=== PATIENT | female | born 1960 | race Caucasian/White ===

== ENCOUNTER 2021-03-13 05:38 | Outpatient (CLI) | payer MEDICAID ==
[~2021-03-13] VITALS: Ht 162.6 cm; Wt 138.6 kg
[2021-03-17] MEDS ORDERED: MELO5CAP3 PO (11:24)
[2021-03-17] MEDS ORDERED: LEVO175C2 PO (11:24)
[2021-03-17] MEDS ORDERED: BUDE10.2 IH (11:24)
[2021-03-17] MEDS ORDERED: LISI20TA26 PO (11:24)
[2021-03-17] MEDS ORDERED: SIMV40TA25 PO (11:24)
[2021-03-17] MEDS ORDERED: LORA10TA7 PO (11:24)
[2021-03-17] MEDS ORDERED: METO100T12 PO (11:24)
[2021-03-17] MEDS ORDERED: ALBU0.63 IH (11:24)
[2021-03-17] MEDS ORDERED: OMEP20TA7 PO (11:24)
[2021-03-17] MEDS ORDERED: GABA-490 PO (11:24)
[2021-03-17] MEDS ORDERED: TOPI100T11 PO (11:24)
[2021-03-20] MEDS ORDERED: OXYC1TAB87 PO (11:07)
[2021-03-20] MEDS ORDERED: DOCU-143 PO (11:07)
== END 2021-03-17 11:38 | disposition home or self-care (01) ==
LOC: PREOP 05:38
PROVIDERS: ATTEND Obstetrics & Gynecology
DX: Z01.818 Encounter for other preprocedural examination (principal)

== ENCOUNTER 2021-03-20 10:42 | Day surgery (SDC) | payer MEDICAID ==
[2021-03-20] VITALS (13 sets, daily range): BP systolic 132–181; BP diastolic 65–83
[~2021-03-20] VITALS: Ht 162.6 cm; Wt 138.6 kg
[~2021-03-20 10:42] MED LIST: ALBU0.63 IH; BUDE10.2 IH; ESTRADIOL VAGINAL CREAM 42.5 GM (ESTRACE) VG ONE; GABA-490 PO; LACTATED RINGERS 1,000 ML IV PRN; LEVO175C2 PO; LIDOCAINE PF 2% 5 ML (XYLOCAINE) VIAL ONE; LIDOCAINE/EPI 1%-1:100,000 (XYLOCAINE) 20ML ONE; LISI20TA26 PO; LORA10TA7 PO; MELO5CAP3 PO; METO100T12 PO; MIDAZOLAM 2 MG/2 ML (VERSED) VIAL ONE; OMEP20TA7 PO; ONDANSETRON 4 MG/2 ML (SDV) Z0FRAN ONE; ROCURONIUM 10 MG/ML 5 ML SYRINGE IV ONE; SEVOFLURANE (ULTANE) 15 ML INHAL SOLN ONE; SIMV40TA25 PO; TOPI100T11 PO; WATER (STERILE) FOR INJECTION 10 ML ONE; ceFAZolin INJECTION 1,000 MG ONE; ceFAZolin INJECTION 1,000 MG in WATER (STERILE) FOR INJECTION 10 ML IV ONE; fentaNYL INJ 100 MCG/2 ML AMP ONE; proPOfol 200 MG/20 ML (DIPRIVAN) VIAL IV ONE
--- NOTE | 2021-03-20 11:01 | Progress Note-Pre Operative ---
Pre-Operative Progress Note H&P Reviewed The H&P was reviewed, patient examined and no changes noted. Date Seen by Provider: Mar 20, 2021 Time Seen by Provider: 12:15 Date H&P Reviewed: Mar 20, 2021 Time H&P Reviewed: 12:15 Pre-Operative Diagnosis: Uterovaginal prolapse/menorrhagia/stress incontinence PRANEETH SUE MD Mar 20, 2021 11:01
--- NOTE | 2021-03-20 11:02 | Progress Note-Post Operative ---
Post-Operative Progess Note Surgeon (s)/Wood Processing Worker (s) Surgeon PRANEETH SUE MD Wood Processing Worker: Jessica Pre-Operative Diagnosis Uterovaginal prolapse/menorrhagia/stress incontinence Post-Operative Diagnosis Same with pathology pending Procedure & Operative Findings Date of Procedure 03/20/21 Procedure Performed/Findings Total laparoscopic hysterectomy with bilateral salpingo-oophorectomy, anterior and posterior vaginal repairs with enterocele repair, and with Dr. Lizbeth douglas pubovaginal sling and cystoscopy Anesthesia Type GETA Estimated Blood Loss Estimated blood loss (mL): 150cc Specimens/Packing Specimens Removed Uterus fallopian tubes and ovaries Packing: Kerlix gauze in the vagina PRANEETH SUE MD Mar 20, 2021 11:02
[2021-03-20] MEDS ORDERED: DOCU-143 PO (11:07)
[2021-03-20] MEDS ORDERED: OXYC1TAB87 PO (11:07)
--- NOTE | 2021-03-20 11:08 | Discharge Inst-Surgical ---
Discharge Inst-Surgical Depart Medication/Instructions New, Converted or Re-Newed RX: RX on Chart Consults/Follow Up Patient Instructions: As directed Orders & Referrals Follow Up Appt: Return to clinic on Tuesday, March 23, 2021 at 9:30 AM for staple removal Call to make follow up appt. for patient in 4 weeks. Activity: Rest for 24 hours, than as tolerated. Wound Care: May remove Band-Aid tomorrow. Replace as desired. Keep incisions clean and dry. Wash daily with soap and water. Please call in RX to patient pharmacy. Diet: As tolerated-Clear Liquids only if nauseated. Tomorrow, may shower or tub bathe as desired. No driving for 24 hours, no alcoholic beverages for 24 hours, and nothing per vagina (no tampons, douching, or intercourse) for 8 weeks. Patient to return to the clinic as soon as possible for: Temperature greater than 101F, Severe Pain, Foul discharge from incision or vagina, Excessive Bleeding (more than a period). Activity Activity as Tolerated: No Diet Discharge Diet: No Restrictions PRANEETH SUE MD Mar 20, 2021 11:08
[2021-03-20] MEDS ORDERED: PATIENT MAY USE OWN MEDS, ALL MC SCH ×2 (11:15→17:00)
[2021-03-20] MEDS ORDERED: KETOROLAC 30 MG/ML VIAL IVP SCH (11:15)
[2021-03-20] MEDS ORDERED: BENZOCAINE/MENTHOL (DERMOPLAST) 56 ML CAN TP PRN (11:15)
[2021-03-20] MEDS ORDERED: fentaNYL INJ 100 MCG/2 ML AMP IVP PRN (11:15)
[2021-03-20] MEDS ORDERED: ONDANSETRON 4 MG/2 ML (SDV) Z0FRAN IVP PRN ×2 (11:15→15:00)
[2021-03-20] MEDS ORDERED: ESTROGENS CONJ INJECTION 25 MG in WATER (STERILE) FOR INJECTION 5 ML IV ONE (11:15)
[2021-03-20 11:37] LABS: BASOPHILS # (AUTO) 0.1 10^3/uL (0.0-0.1); BASOPHILS % (AUTO) 1 % (0-10); EOSINOPHILS # (AUTO) 0.4 10^3/uL (0.0-0.3); EOSINOPHILS % (AUTO) 5 % (0-10); HEMATOCRIT 41 % (35-52); HEMOGLOBIN 13.2 g/dL (11.5-16.0); LYMPHOCYTES # (AUTO) 1.7 10^3/uL (1.0-4.0); LYMPHOCYTES % (AUTO) 20 % (12-44); MEAN CORPUSCULAR HEMOGLOBIN 29 pg (25-34); MEAN CORPUSCULAR HGB CONC 32 g/dL (32-36); MEAN CORPUSCULAR VOLUME 89 fL (80-99); MEAN PLATELET VOLUME 12.6 fL (9.0-12.2); MONOCYTES # (AUTO) 0.7 10^3/uL (0.0-1.0); MONOCYTES % (AUTO) 8 % (0-12); NEUTROPHILS # (AUTO) 5.7 10^3/uL (1.8-7.8); NEUTROPHILS % (AUTO) 66 % (42-75); PLATELET COUNT 229 10^3/uL (130-400); WHITE BLOOD COUNT 8.6 10^3/uL (4.3-11.0)
[2021-03-20 12:07] LABS: EOSINOPHILS % (MANUAL) 8 %; LYMPHOCYTES % (MANUAL) 15 %; MONOCYTES % (MANUAL) 8 %; NEUTROPHILS % (MANUAL) 62 %; RBC MORPH NORMAL; REACTIVE LYMPHOCYTES 7 %
[2021-03-20] MEDS ORDERED: ROCURONIUM 10 MG/ML 5 ML SYRINGE IV ONE (13:03)
[2021-03-20] MEDS ORDERED: GLYCOPYRROLATE 0.2 MG/ML (ROBINUL) 2 ML VIAL ONE (13:03)
[2021-03-20] MEDS ORDERED: NEOSTIGMINE 3 MG/3 ML VIAL ONE (13:03)
--- NOTE | 2021-03-20 14:14 | Progress Note-Post Operative ---
Post-Operative Progess Note Surgeon (s)/Laundry Machine Tender (s) Surgeon LUIS QUESADA MD Laundry Machine Tender: PRANEETH SUE MD Pre-Operative Diagnosis [facility] Post-Operative Diagnosis SAME Procedure & Operative Findings Date of Procedure 03/20/21 Procedure Performed/Findings PVS AND CYSTOSCOPY Anesthesia Type GENERAL Estimated Blood Loss Estimated blood loss (mL): NEGLIGIBLE Specimens/Packing Specimens Removed NONE Packin GM ESTRACE VAGINAL PACK LUIS QUESADA MD Mar 20, 2021 14:14
[2021-03-20] MEDS ORDERED: SEVOFLURANE (ULTANE) 15 ML INHAL SOLN ONE ×4 (14:20)
[2021-03-20] MEDS ORDERED: HYDROmorphone 2 MG/ML VIAL (DILAUDID) ONE (14:25)
[2021-03-20] MEDS ORDERED: ESTROGENS CONJ IV 25 MG/5 ML (PREMARIN) VIAL ONE (14:39)
[2021-03-20] MEDS ORDERED: WATER (STERILE) FOR INJECTION 10 ML ONE (14:39)
[2021-03-20] MEDS ORDERED: KETOROLAC 30 MG/ML VIAL ONE (14:58)
[2021-03-20] MEDS ORDERED: morphine INJ 10 MG/ML 1ML (SYR OR VIAL) IVP ONE (15:00)
[2021-03-20] MEDS ORDERED: HYDROmorphone 2 MG/ML VIAL (DILAUDID) IV ONE (15:00)
--- NOTE | 2021-03-20 15:07 | Anesthesia-General Post-Op ---
General Patient Condition Mental Status/LOC: Same as Preop Cardiovascular: Satisfactory Nausea/Vomiting: Absent Respiratory: Satisfactory Pain: Controlled Complications: Absent Post Op Complications Complications None Follow Up Care/Instructions Patient Instructions None needed. Anesthesia/Patient Condition Patient Condition Patient is doing well, no complaints, stable vital signs, no apparent adverse anesthesia problems. PARKER LAGOS DO Mar 20, 2021 15:07
[2021-03-20] MEDS ORDERED: D5 LR IV SOLUTION 1,000 ML IV ONE (16:09)
[2021-03-20] MEDS ORDERED: oxyCODONE/APAP 5/325MG (PERCOCET 5) TABLET ONE (16:11)
[2021-03-20] MEDS: D5 LR IV SOLUTION 1,000 ML IV SCH ×3 (16:21→19:52)
[2021-03-20] MEDS: oxyCODONE/APAP 5/325MG (PERCOCET 5) TABLET PO PRN (16:21)
[2021-03-20] MEDS ORDERED: NON-FORMULARY MEDICATION 1 EA EA (Albuterol Sulfate 0.63 MG) IH SCH (16:45)
[2021-03-20] MEDS ORDERED: MELOXICAM 15 MG TABLET PO SCH (18:00)
[2021-03-20] MEDS: RT--FLUTICASONE/SALMETEROL 232-14 (AIRDUO RespiCLICK) IH SCH (18:34)
--- NOTE | 2021-03-20 19:45 | OPERATIVE REPORT ---
DATE OF SERVICE: 03/20/2021 PREOPERATIVE DIAGNOSIS: On my part, urinary incontinence, stress type. POSTOPERATIVE DIAGNOSIS: On my part, urinary incontinence, stress type. OPERATION PERFORMED: Pubovaginal sling and cystoscopy. SURGEON: Luis Quesada MD. BAGGAGE INSPECTOR: Graeme Howell MD COMPLICATIONS: None. DESCRIPTION OF PROCEDURE: After Dr. Howell performed the first part of his surgery that he will dictate, I passed the Desara II device using the described technique, the sling was sitting nicely under the mid urethra with no tension, no twist, passage of a curved hemostat easily between it and the underlying tissue. I removed the Tyson catheter, which I had inserted prior to passing the sling to perform cystoscopy to confirm the integrity of the bladder, ureteral orifices and urethra with no foreign body in the bladder or else and presence of the sling under the mid urethra. I left the bladder half full to perform a manual Valsalva maneuver after removing the cystoscope and it was negative. Reinserted the Tyson catheter, draining clear fluid. Estimated blood loss on my part negligible and Dr. Howell proceeded with rest of his surgery that he will dictate. Job ID: [id number] DocumentID: [id number] Dictated Date: 03/20/2021 14:11:20 Tiller Worker Date: 03/20/2021 19:44:53 Dictated By: LUIS QUESADA MD
[2021-03-20] MEDS: GABAPENTIN 400 MG (NEURONTIN) CAP PO SCH (20:02)
[2021-03-20] MEDS: KETOROLAC 30 MG/ML VIAL IVP SCH (20:03)
[2021-03-20] MEDS: METOPROLOL TARTRATE 100 MG TABLET PO SCH (20:03)
[2021-03-20] MEDS ORDERED: NON-FORMULARY MEDICATION 1 EA EA (Budesonide/Formoterol Fumarate (Symbicort 160-4.5 Mcg In IH SCH (21:00)
--- NOTE | 2021-03-20 21:27 | OPERATIVE REPORT ---
DATE OF SERVICE: 03/20/2021 PREOPERATIVE DIAGNOSES: Uterovaginal prolapse, stress urinary incontinence and menorrhagia. POSTOPERATIVE DIAGNOSES: Uterovaginal prolapse, stress urinary incontinence and menorrhagia. OPERATIVE PROCEDURE: Total laparoscopic hysterectomy with bilateral salpingo-oophorectomy as well as anterior and posterior vaginal repairs with enterocele repair and Dr. Johnson did a pubovaginal sling and cystoscopy. OPERATIVE DESCRIPTION: With the patient in supine position under satisfactory general anesthesia, she was repositioned carefully in the dorsal lithotomy position in the [facility] and prepped and draped in the usual fashion for abdominal and vaginal surgery. Weighted speculum placed in posterior fornix of vagina, cervix exposed, grasped anteriorly with single tooth tenaculum. Uterus was sounded to 13 cm with uterine sound. Cervix was then serially dilated with Santo dilators to accommodate a Gisela II manipulator, which was placed with a 6 mm x 8 cm uterine probe and a 25 mm colpotomy ring. Sutures of #1 Vicryl placed at 3 and 9 o'clock position of the cervix to affix the uterus to the manipulator. Tenaculum and speculum were removed and a Tyson catheter was placed in the urinary bladder. The patient was brought in low dorsal lithotomy position. A 12 mm incision was made superior to the umbilicus about 12 cm. Veress needle was placed through that incision into the abdominal cavity. Correct placement confirmed with water drop test. The abdomen was insufflated with 2.4 liters of carbon dioxide The Veress needle was removed and a 12 mm Optiview laparoscopic port was placed. The endoscope was introduced. The abdominal wall was transilluminated and ports of 8 mm were placed through incisions of those sizes 9 cm lateral to the umbilicus at a level approximately 2 cm above the umbilicus. The 12 mm port for the camera barely passed into the abdominal cavity, so it was changed out for a longer 12 mm port over a passing one. This allowed for placing and removing the camera without risk of losing her port site. The patient now placed in Trendelenburg, allowing the bowel spill out of the pelvis. The da Krystle column was advanced on the patient and docked. Operative instrument placed in right and left lateral ports and I retired to the da Krystle console. At the console using the vessel sealer on the right, a bipolar fenestrated grasper on the left, the pelvis was examined. The ovaries looked normal and somewhat atretic. The uterus was large, bulky and multilobular consistent with uterine fibroids. The fallopian tubes showed evidence of remote tubal sterilization. There were some adhesions of the sigmoid to the left pelvic brim. These were taken down to allow access to the IP ligament. Both ureters could be identified and were seemed to peristalse. Laparoscope was rotated. An attempt was made to visualize the appendix, but that could not be seen. It was too far lateral and superior from my equipment, so I never did see the appendix. Laparoscope was brought back to the pelvis. The right tube and ovary were grasped and elevated with the ureter well medial to the IP ligament was clamped, cauterized and divided with the vessel sealer that was continued stepwise across the mesovarium and across the round ligament, across the broad ligament down on to the cardinal ligament. The same procedure performed on the left. The anterior lower uterine segment peritoneum was then divided using monopolar chad in place of the vessel sealer on the right. The bladder was carefully dissected off the lower uterine segment, then colpotomy incision was started at 12 o'clock position onto the colpotomy ring. That incision was continued circumferentially until the entire colpotomy ring was exposed and then the uterus with tubes and ovaries still attached was extracted through the vagina. There was some difficulty with extracting the specimen through the vagina. I scrubbed back in and removed the tissue and then returned to the da Krystle console for the balance of the laparoscopic portion of the procedure. Back at the console, I closed the vaginal cuff with two sutures of V-Loc barbed suture starting from the first angle and continuing about half way across the vaginal cuff and then from the left angle and back to the midline and then reperitonealized the cuff with the last two stitches on the left. Care was taken to include the uterine vessel pedicles bilaterally with the closure. Good hemostasis was achieved. There was no remaining abnormal pathology. At this point, the laparoscopic portion of the procedure was halted. The abdomen was evacuated insufflating gas after removing the instruments and removing the ports. The skin incisions were closed with selvin. The patient was repositioned in the dorsal lithotomy position for the anterior and posterior vaginal repairs. Anterior repair was initiated by placing Jensen clamps on the anterior vaginal wall opening the vaginal wall in the midline, dissecting the vaginal wall off the muscularis after the bladder wall bilaterally to the pubic rami bilaterally. Endopelvic fascia and bladder wall were then plicated with 2-0 Vicryl sutures, elevating the bladder and lengthening the urethra. At this point, Dr. Johnson assumed care of the patient. I remained to assist. Dr. Johnson placed the pubovaginal sling and performed cystoscopy with normal findings. He left the Tyson catheter to dependent drainage on completion of this portion of the procedure. After Dr. Johnson finished, I resumed care of the patient, resected the redundant anterior vaginal muscularis mucosa and then closed the vaginal wall with a running locked suture of 3-0 Vicryl Rapide. Posterior repair was then performed by placing Jensen clamps on the perineum and the hymenal ring at 5 and 7 o'clock position. An inverted triangle skin was removed from the perineal body. An upright triangle was removed from the posterior vaginal floor. The rectovaginal space was entered sharply and dissected bluntly to the apex of the vagina. Ivon retractor was placed anteriorly and Jassi retractor posteriorly. The rectovaginal space was explored for an enterocele that was small and that was reduced and plicated with 2-0 Vicryl pursestring suture and then additional sutures of 2-0 Vicryl were used to obliterate the rectovaginal space and restored the perineal body. Redundant posterior vaginal muscularis mucosa was removed sharply. Vaginal wall was closed with a running locked suture of 3-0 Vicryl Rapide. Good reapproximation was evident and good hemostasis was achieved. There was one bleeding site that was controlled with a [id number] suture of 2-0 Vicryl near the middle of the incision. Digital rectal exam did demonstrate one suture into the rectal mucosa. Metzenbaum scissors were passed through the anus into the rectum and digitally localized the scissors onto the suture was clipped to allow it to retract into the tissue. With sponge and needle counts correct, hemostasis assured. The vagina was now filled with Estrace vaginal cream and a pack of Kerlix gauze was placed. The Tyson catheter was left to dependent drainage and was draining clear yellow urine. The patient was now uneventfully awakened from her general anesthesia and transferred to recovery room in stable condition. Job ID: [id number] DocumentID: [id number] Dictated Date: 03/20/2021 15:01:43 Certified Registered Nurse Anesthetist Date: 03/20/2021 21:27:21 Dictated By: PRANEETH SUE MD MTDD
[2021-03-21 00:08] VITALS: BP 146/66
[2021-03-21] MEDS ORDERED: D5 LR IV SOLUTION 1,000 ML IV ONE (02:59)
[2021-03-21 03:05] VITALS: BP 132/61
[2021-03-21] MEDS: D5 LR IV SOLUTION 1,000 ML IV SCH (03:08)
[2021-03-21] MEDS: KETOROLAC 30 MG/ML VIAL IVP SCH (03:09)
[2021-03-21] MEDS ORDERED: LEVOTHYROXINE 175 MCG TABLET PO SCH (06:30)
[2021-03-21] MEDS: RT--FLUTICASONE/SALMETEROL 232-14 (AIRDUO RespiCLICK) IH SCH (07:10)
[2021-03-21] MEDS: RT-ALBUTEROL SULF 2.5 MG/3 ML PRE-MIX VIAL IH SCH ×4 (07:29→14:44)
[2021-03-21 09:00] VITALS: BP 170/77
[2021-03-21] MEDS ORDERED: toPIRamate 100 MG (TOPAMAX) TAB PO SCH (09:00)
[2021-03-21] MEDS ORDERED: lisINopril 20 MG (PRINIVIL) TABLET PO SCH (09:00)
[2021-03-21] MEDS ORDERED: ESTRADIOL 1 MG TAB (ESTRACE) PO SCH (09:00)
[2021-03-21] MEDS ORDERED: OMEPRAZOLE 20 MG CAPSULE PO SCH (09:00)
[2021-03-21] MEDS ORDERED: LORATADINE (CLARITIN) 10 MG TAB PO SCH (09:00)
[2021-03-21] MEDS ORDERED: DOCUSATE SODIUM 100 MG (COLACE) CAP PO SCH (09:00)
[2021-03-21] MEDS ORDERED: SIMvastatin 40 MG (ZOCOR) TAB PO SCH (09:00)
[2021-03-21] MEDS: METOPROLOL TARTRATE 100 MG TABLET PO SCH (09:15)
[2021-03-21] MEDS: GABAPENTIN 400 MG (NEURONTIN) CAP PO SCH (09:16)
[2021-03-21] MEDS: oxyCODONE/APAP 5/325MG (PERCOCET 5) TABLET PO PRN (09:21)
[2021-03-21] MEDS ORDERED: IBUPROFEN 800 MG (MOTRIN) TAB PO SCH (15:00)
== END 2021-03-21 12:00 | disposition home or self-care (01) ==
LOC: SDC 10:42 → WS 16:09 → SDC 03-21 12:00
PROVIDERS: ATTEND Obstetrics & Gynecology
DX: N81.4 Uterovaginal prolapse, unspecified (principal); N84.1 Polyp of cervix uteri; N39.3 Stress incontinence (female) (male); I42.9 Cardiomyopathy, unspecified; J44.9 Chronic obstructive pulmonary disease, unspecified; K21.9 Gastro-esophageal reflux disease without esophagitis; E66.01 Morbid (severe) obesity due to excess calories; R51.9 Headache, unspecified; R56.9 Unspecified convulsions; Z68.43 Body mass index [BMI] 50.0-59.9, adult; Z79.1 Long term (current) use of non-steroidal anti-inflammatories (NSAID); Z87.891 Personal history of nicotine dependence; Z79.899 Other long term (current) drug therapy; Z79.51 Long term (current) use of inhaled steroids; Z79.2 Long term (current) use of antibiotics
CPT/HCPCS: 57265; 57288; 58573; 85007; 85027; 87081; 94664; 94760 ×2; C1771; 36415

== ENCOUNTER 2021-05-04 09:36 | Outpatient (RCR) | payer MEDICAID ==
[~2021-05-04 09:36] MED LIST changes: +DOCU-143 PO; -ESTRADIOL VAGINAL CREAM 42.5 GM (ESTRACE) VG ONE; -LACTATED RINGERS 1,000 ML IV PRN; -LIDOCAINE PF 2% 5 ML (XYLOCAINE) VIAL ONE; -LIDOCAINE/EPI 1%-1:100,000 (XYLOCAINE) 20ML ONE; -MIDAZOLAM 2 MG/2 ML (VERSED) VIAL ONE; -ONDANSETRON 4 MG/2 ML (SDV) Z0FRAN ONE; +OXYC1TAB87 PO; -ROCURONIUM 10 MG/ML 5 ML SYRINGE IV ONE; -SEVOFLURANE (ULTANE) 15 ML INHAL SOLN ONE; -WATER (STERILE) FOR INJECTION 10 ML ONE; -ceFAZolin INJECTION 1,000 MG ONE; -ceFAZolin INJECTION 1,000 MG in WATER (STERILE) FOR INJECTION 10 ML IV ONE; -fentaNYL INJ 100 MCG/2 ML AMP ONE; -proPOfol 200 MG/20 ML (DIPRIVAN) VIAL IV ONE
[2021-05-04 11:32] LABS: BASOPHILS # (AUTO) 0.1 10^3/uL (0.0-0.1); BASOPHILS % (AUTO) 1 % (0-10); EOSINOPHILS # (AUTO) 0.5 10^3/uL (0.0-0.3); EOSINOPHILS % (AUTO) 5 % (0-10); HEMATOCRIT 44 % (35-52); HEMOGLOBIN 13.6 g/dL (11.5-16.0); LYMPHOCYTES # (AUTO) 2.4 10^3/uL (1.0-4.0); LYMPHOCYTES % (AUTO) 22 % (12-44); MEAN CORPUSCULAR HEMOGLOBIN 28 pg (25-34); MEAN CORPUSCULAR HGB CONC 31 g/dL (32-36); MEAN CORPUSCULAR VOLUME 92 fL (80-99); MEAN PLATELET VOLUME 12.4 fL (9.0-12.2); MONOCYTES # (AUTO) 0.8 10^3/uL (0.0-1.0); MONOCYTES % (AUTO) 8 % (0-12); NEUTROPHILS # (AUTO) 7.1 10^3/uL (1.8-7.8); NEUTROPHILS % (AUTO) 65 % (42-75); PLATELET COUNT 302 10^3/uL (130-400); WHITE BLOOD COUNT 10.9 10^3/uL (4.3-11.0)
[2021-05-04 11:51] LABS: ALBUMIN 4.4 GM/DL (3.2-4.5); BILIRUBIN,TOTAL 0.5 MG/DL (0.1-1.0); CALCIUM 9.3 MG/DL (8.5-10.1); CREATININE SERUM 0.97 MG/DL (0.60-1.30); POTASSIUM 4.5 MMOL/L (3.6-5.0)
== END 2021-08-02 | disposition home or self-care (01) ==
LOC: ONC 09:36
PROVIDERS: ATTEND Internal Medicine Hematology & Oncology
DX: C54.1 Malignant neoplasm of endometrium (principal); E66.9 Obesity, unspecified; F32.9 Major depressive disorder, single episode, unspecified
CPT/HCPCS: 80053; 85025; 86304; G0463; 99214